=== PATIENT | male | born 1995 | race Native Hawaiian/Other Pacific Islander ===

== ENCOUNTER 2016-11-28 02:12 | Emergency (ER) | payer OTHER ==
[~2016-11-28] VITALS: Ht 182.9 cm; Wt 114.8 kg
[2016-11-28 02:30] VITALS: BP 136/89; TEMP 98.1
== END 2016-11-28 03:02 | disposition left against medical advice (07) ==
LOC: ED 02:12
DX: T79.A22A Traumatic compartment syndrome of left lower extremity, initial encounter (principal); V86.99XA Unspecified occupant of other special all-terrain or other off-road motor vehicle injured in nontraffic accident, initial encounter
CPT/HCPCS: 99281

== ENCOUNTER 2018-09-16 20:46 | Emergency (ER) | payer OTHER ==
[~2018-09-16] VITALS: Ht 182.9 cm; Wt 117.9 kg
[2018-09-16 22:15] VITALS: BP 119/72; TEMP 98.2
== END 2018-09-16 22:10 | disposition home or self-care (01) ==
LOC: ED 20:46
DX: S60.221A Contusion of right hand, initial encounter (principal); W22.8XXA Striking against or struck by other objects, initial encounter
CPT/HCPCS: 99283

== ENCOUNTER 2018-11-27 18:41 | Emergency (ER) | payer OTHER ==
[~2018-11-27] VITALS: Ht 182.9 cm; Wt 113.4 kg
[2018-11-27 18:48] VITALS: BP 135/72; TEMP 97.7
== END 2018-11-27 20:37 | disposition home or self-care (01) ==
LOC: ED 18:41
DX: S00.83XA Contusion of other part of head, initial encounter (principal); V86.99XA Unspecified occupant of other special all-terrain or other off-road motor vehicle injured in nontraffic accident, initial encounter
CPT/HCPCS: 99283

== ENCOUNTER 2019-05-11 13:36 | Emergency (ER) | payer BC ==
[~2019-05-11] VITALS: Ht 182.9 cm; Wt 113.4 kg
[2019-05-11 13:53] VITALS: TEMP 97.9
[2019-05-11 14:39] VITALS: BP 133/89
== END 2019-05-11 14:39 | disposition home or self-care (01) ==
LOC: ED 13:36
DX: K04.7 Periapical abscess without sinus (principal)
CPT/HCPCS: 96372; 99283; J0696; J1885

== ENCOUNTER 2019-11-12 18:27 | Emergency (ER) | payer BC ==
[~2019-11-12] VITALS: Ht 182.9 cm; Wt 113.4 kg
[2019-11-12 19:05] VITALS: BP 123/77; TEMP 98.4
== END 2019-11-12 19:05 | disposition home or self-care (01) ==
LOC: ED 18:27
DX: K08.89 Other specified disorders of teeth and supporting structures (principal)
CPT/HCPCS: 99281

== ENCOUNTER 2019-12-25 16:44 | Emergency (ER) | payer BC ==
[~2019-12-25] VITALS: Ht 182.9 cm; Wt 121.6 kg
[2019-12-25 16:49] VITALS: TEMP 99
[2019-12-25 17:37] LABS: PLATELET COUNT 286 K/uL (142-355)
[2019-12-25 17:46] LABS: POTASSIUM 3.8 mmol/L (3.6-5.2)
[2019-12-25 19:00] VITALS: BP 138/76
== END 2019-12-25 19:15 | disposition home or self-care (01) ==
LOC: ED 16:44
PROVIDERS: Hospitalist
DX: K29.60 Other gastritis without bleeding (principal); R11.2 Nausea with vomiting, unspecified; R51 Headache; Z20.828 Contact with and (suspected) exposure to other viral communicable diseases
CPT/HCPCS: 36415; 80053; 81000; 82150; 83690; 85027; 87635; 96360; 96375; 99284; J1885; J2405; U00003

== ENCOUNTER 2022-03-06 12:41 | Emergency (ER) | payer OTHER ==
[~2022-03-06] VITALS: Ht 182.9 cm; Wt 121.6 kg
[2022-03-06 13:03] VITALS: BP 144/91; TEMP 98
== END 2022-03-06 14:40 | disposition home or self-care (01) ==
LOC: ED 12:41
PROC: 2W3QX1Z Immobilization of Right Lower Leg using Splint (ICD-10-PCS; principal; 2022-03-06)
DX: S82.64XA Nondisplaced fracture of lateral malleolus of right fibula, initial encounter for closed fracture (principal); X50.1XXA Overexertion from prolonged static or awkward postures, initial encounter; Y92.89 Other specified places as the place of occurrence of the external cause
CPT/HCPCS: 99283

== ENCOUNTER 2023-07-15 10:58 | Emergency (ER) | payer BC ==
[~2023-07-15] VITALS: Ht 182.9 cm; Wt 124.7 kg
[2023-07-15 11:00] VITALS: BP 135/81; TEMP 97.9
[2023-07-15] MEDS ORDERED: IBUPROFEN 800 MG TAB PO ONE ×2 (11:41→11:48)
== END 2023-07-15 12:43 | disposition home or self-care (01) ==
LOC: ED 10:58
PROC: 2W3QX1Z Immobilization of Right Lower Leg using Splint (ICD-10-PCS; principal; 2023-07-15)
DX: M25.571 Pain in right ankle and joints of right foot (principal); R22.41 Localized swelling, mass and lump, right lower limb; S99.911A Unspecified injury of right ankle, initial encounter; W01.0XXA Fall on same level from slipping, tripping and stumbling without subsequent striking against object, initial encounter; Y93.89 Activity, other specified; Y92.89 Other specified places as the place of occurrence of the external cause
CPT/HCPCS: 99283